=== PATIENT | female | born 1930 | race Caucasian/White ===

== ENCOUNTER 2017-12-10 06:05 | Emergency (ER) | payer MEDICARE, OTHER ==
[~2017-12-10] VITALS: Ht 157.5 cm; Wt 87.5 kg
[2017-12-10] MEDS ORDERED: PRAZOSIN HCL 1 MG (06:28)
[2017-12-10] MEDS ORDERED: FUROSEMIDE 40 MG TABLET (06:28)
[2017-12-10] MEDS ORDERED: DILTIAZEM 24HR ER 240 MG CAP (06:28)
[2017-12-10] MEDS ORDERED: VALSARTAN 160 MG TABLET (06:28)
--- NOTE | 2017-12-10 06:56 | NUR ---
KING BEGUM AT BEDSIDE FOR PATIENT EVALUATION.
--- NOTE | 2017-12-10 06:57 | NUR ---
IMAGING CONTACTED FOR REQUEST OF BLE VENOUS US
--- NOTE | 2017-12-10 07:05 | NUR ---
REPORT GIVEN TO VALERIA CASTRO.
--- NOTE | 2017-12-10 07:56 | NUR ---
U/S TECH AT THE BEDSIDE, PT REMAINES PAIN FREE.
--- NOTE | 2017-12-10 08:26 | NUR ---
Patient discharged to home in stable conditon. Written and verbal after care instructions given. Patient verbalizes understanding of instructions. PT WALKED OUT OF ER USING OWN CANE.
[2017-12-10 08:27] VITALS: BP 144/67
== END 2017-12-10 08:28 | disposition home or self-care (01) ==
LOC: ER 06:13
DX: R60.9 Edema, unspecified (principal); M79.604 Pain in right leg; M79.605 Pain in left leg; I10 Essential (primary) hypertension; K21.9 Gastro-esophageal reflux disease without esophagitis; Z88.0 Allergy status to penicillin
CPT/HCPCS: 93970; 99284; A4663